=== PATIENT | female | born 1990 | race Caucasian/White ===

== ENCOUNTER 2021-02-13 19:54 | Emergency (ER) | payer SELFPAY ==
[~2021-02-13] VITALS: Ht 177.8 cm; Wt 117.9 kg
== END 2021-02-13 20:28 | disposition home or self-care (01) ==
LOC: ER 20:19
DX: O26.92 Pregnancy related conditions, unspecified, second trimester (principal); R51.9 Headache, unspecified; I10 Essential (primary) hypertension; I50.9 Heart failure, unspecified
CPT/HCPCS: 99282